=== PATIENT | male | born 1970 | race Hispanic/Latino ===

== ENCOUNTER 2018-08-08 16:20 | Inpatient (IN) | payer SELFPAY ==
--- NOTE | 2018-08-08 17:20 | ULT ---
Left lower extremity venous Doppler ultrasound: 08/08/2018 COMPARISON: None HISTORY: Pain, swelling, edema, assess for DVT TECHNIQUE: Multiplanar grayscale sonographic imaging of the left lower extremity venous structures ob tained with color flow and spectral analysis FINDINGS: Left common femoral vein, greater saphenous vein, profunda femoral vein, femoral vein, popl iteal vein, and posterior tibial vein are patent. Normal blood flow augmentation and compression of the deep venous system. No evidence for DVT on the left IMPRESSION: No evidence for left lower extremity DVT.
[2018-08-08] MEDS ORDERED: Dextrose 50% Abboject 50 ML SYRINGE SLOW IVP PRN (18:17)
[2018-08-08] MEDS ORDERED: Dextrose 5% in Water 1,000 ML IV PRN (18:17)
[2018-08-08] MEDS ORDERED: Ondansetron PF 4 MG/2 ML Vial IVP PRN (18:17)
[2018-08-08] MEDS ORDERED: Potassium Chloride 20 MEQ TAB PO SCH (18:30)
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
[2018-08-08 19:27] VITALS: BMI 34.2
--- NOTE | 2018-08-08 19:37 | RAD ---
Left ankle 3 views: 08/08/2018 COMPARISON: None HISTORY: Lateral pain FINDINGS: Mild soft tissue swelling overlies the lateral malleolus. The talar dome and ankle mortise are intact. No displaced fracture or dislocation is seen. There is enthesophyte formation at the origin of the plantar aponeurosis insertion of the Achilles tendon. There is atherosclerotic calcific ation anterior and posterior to the ankle and distal left tibia. IMPRESSION: Soft tissue swelling. No acute fracture or dislocation.
--- NOTE | 2018-08-08 20:53 | PDOC.EVN ---
Event Note - Event Note Event Note: pt's bp on the floor is 160's systolic - will reduce amlodipine to 5 mg to avoid a precipitous drop in bp. Re-assess in AM, and consider BID dosing if significantly elevated.
[2018-08-08] MEDS ORDERED: Amlodipine 5 MG TAB PO SCH (21:00)
[2018-08-08] MEDS ORDERED: Vancomycin HCl 1 GM in Premix Bag 1 BAG IVPB SCH (21:00)
[2018-08-08] MEDS ORDERED: Amlodipine 10 MG TAB PO SCH (21:00)
[2018-08-08] MEDS ORDERED: Insulin Glargine 25 UNITS in Pre-Filled Syringe 1 EACH SC SCH (21:00)
[2018-08-08] MEDS: Cefepime 2 GM in Sodium Chloride 0.9% 100 ML IVPB SCH (21:10)
[2018-08-08] MEDS: Heparin 5,000 UNITS/ML VIAL SC SCH (21:10)
[2018-08-08] MEDS: Sodium Chloride 0.9% 1,000 ML IV SCH (21:23)
[2018-08-08] MEDS: HumaLOG 300 UNITS/3 ML VIAL SC PRN (21:27)
[2018-08-09] MEDS: Vancomycin HCl 1.75 GM in Sodium Chloride 0.9% 500 ML IVPB SCH ×2 (00:21→12:17)
[2018-08-09] MEDS: Acetaminophen 325 MG TAB PO PRN ×3 (00:30→17:39)
[2018-08-09] MEDS: hydrALAZINE 20 MG/ML VIAL SLOW IVP PRN ×2 (00:30→05:03)
[2018-08-09] MEDS: HumaLOG 300 UNITS/3 ML VIAL SC PRN ×4 (05:05→21:19)
[2018-08-09 06:32] LABS: #Lymphocytes 1.4 thou/uL (1.20-3.40); #Monocytes 0.7 thou/uL (0.11-0.59); #Neutrophils 7.4 thou/uL (1.40-6.50); %Basophils 0.1 % (0.0-1.0); %Eosinophils 0.3 % (0.0-10.0); %Monocytes 7.6 % (0.0-10.0); Mean Corpuscular HGB CONC 35.5 g/dL (32.0-36.0); Mean Corpuscular Hemoglobin 31.8 pg (27.0-31.0); Mean Corpuscular Volume 89.8 fL (78.0-98.0); Mean Platelet Volume 9.4 fL (7.4-10.4); Platelet Count 119 thou/uL (130-400); RBC Distribution Width 11.6 % (11.5-14.5); Red Blood Cell (RBC) Count 4.38 mill/uL (4.70-6.10); White Blood Cell (WBC) Count 9.5 thou/uL (4.8-10.8)
[2018-08-09 06:42] LABS: Anion Gap 11 mmol/L (10-20); BUN (Urea Nitrogen) 17 mg/dL (8.9-20.6); Calc. Creatinine Clearance 103 mL/min (70-130); Carbon Dioxide 26 mmol/L (22-29); Chloride 101 mmol/L (98-107); Estimated GFR-MDRD 51; Glucose 261 mg/dL (70-105); Potassium 3.1 mmol/L (3.5-5.1); Sodium 135 mmol/L (136-145)
[2018-08-09] MEDS ORDERED: Potassium Chloride 20 MEQ TAB PO SCH ×2 (07:30→18:30)
[2018-08-09] MEDS: Cefepime 2 GM in Sodium Chloride 0.9% 100 ML IVPB SCH ×2 (08:24→21:19)
[2018-08-09] MEDS: Amlodipine 5 MG TAB PO SCH ×2 (08:24→21:18)
[2018-08-09] MEDS: Heparin 5,000 UNITS/ML VIAL SC SCH ×2 (08:25→21:18)
[2018-08-09] MEDS ORDERED: Lisinopril 10 MG TAB PO SCH (09:00)
[2018-08-09] MEDS ORDERED: Magnesium Sulfate 2 GM in Sodium Chloride 0.9% 100 ML IVPB SCH (09:00)
[2018-08-09] MEDS ORDERED: Magnesium 2 GM/50 ML 2 GM in Premix Bag 1 BAG IVPB SCH ×2 (10:00→18:30)
--- NOTE | 2018-08-09 16:14 | PDOC.PN ---
- Subjective Encounter Start Date: 08/09/18 (f/u cellulitis) Encounter Start Time: 09:45 Subjective: Pt reports pain is improved in left leg. Has nausea now, and some n /v -: along with fever earlier this morning. - Objective Resuscitation Status - Order Detail: 08/08/18 18:17 Resuscitation Status Routine Resuscitation Status: FULL: Full Resuscitation Vital Signs & Weight: Vital Signs (12 hours) Temp Pulse Resp BP BP Pulse Ox 08/09/18 12:21 100.0 F H 08/09/18 11:47 102.8 F H 95 20 143/73 H 93 L 08/09/18 08:29 98.5 F 08/09/18 08:24 91 161/75 H 92 L 08/09/18 07:36 101.0 F H 92 20 161/75 H 92 L 08/09/18 07:22 133/62 08/09/18 04:25 99.7 F H 83 18 193/89 H 94 L Weight Weight 259 lb 15.858 oz I&O: 08/08/18 08/09/18 08/10/18 06:59 06:59 06:59 Intake Total 1240 Balance 1240 Result Diagrams: 08/09/18 06:05 08/09/18 06:05 Additional Labs: Accuchecks 08/09/18 08/09/18 08/08/18 11:22 04:59 21:08 POC Glucose 262 H 257 H 464 H Phys Exam - Physical Examination Constitutional: NAD Respiratory: no wheezing, no rales, no rhonchi Cardiovascular: RRR, no significant murmur Gastrointestinal: soft, non-tender, no distention, positive bowel sounds LLE mild erythema/edema and ttp along lateral malleolus and distal 1/3 tibia with hyperpigmentaion and central crusting Neurological: non-focal Psychiatric: normal affect Dx/Plan (1) Cellulitis Code(s): L03.90 - CELLULITIS, UNSPECIFIED Status: Acute Qualifiers: Site of cellulitis: extremity Site of cellulitis of extremity: lower extremity Laterality: left Qualified Code(s): L03.116 - Cellulitis of left lower limb (2) CKD (chronic kidney disease) stage 2, GFR 60-89 ml/min Code(s): N18.2 - CHRONIC KIDNEY DISEASE, STAGE 2 (MILD) Status: Chronic (3) DM type 2 (diabetes mellitus, type 2) Status: Chronic 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 Diabetes mellitus complication status: with kidney complications Diabetes mellitus complication detail: with chronic kidney disease (4) HTN (hypertension) Code(s): I10 - ESSENTIAL (PRIMARY) HYPERTENSION Status: Chronic Qualifiers: Hypertension type: essential hypertension Qualified Code(s): I10 - Essential (primary) hypertension (5) Obesity Code(s): E66.9 - OBESITY, UNSPECIFIED Status: Acute Qualifiers: Obesity type: due to excess calories Obesity classification: adult class 1 (BMI 30 - 34.9) - Plan * Continue cefepime and Vanc for cellulitis - pt at high risk for complications secondary to uncontrolled DM and HTN * If continuing to fever tomorrow, consider imaging to eval for osteo - no signs of this on XR * * Amlodipine initiated yesterday, lisinopril today for management of blood pressures. These will need to be titrated and renal function monitored * * fasting blood sugar 260's - increase lantus to 30 units HS * * Blood cultures drawn in [place] - are here in the main lab and are negative so far. These do not show up in our system - I talked with the lab to confirm. * * proteinuria with CKD - monitor for stability, JAN-I and control blood sugars and pressures * * replace magnesium and potassium - recheck in afternoon * manage nausea and fevers * d/c IVF when nausea managed and taking adequate PO * * dvt prophy - heparin * * gi prophy - not indicated * * code status full * * pt remains at high risk in current condition
[2018-08-09] MEDS: Sodium Chloride 0.9% 1,000 ML IV SCH (16:24)
[2018-08-09 17:40] LABS: Magnesium 1.3 mg/dL (1.6-2.6); Potassium 3.2 mmol/L (3.5-5.1)
--- NOTE | 2018-08-09 18:25 | PDOC.EVN ---
Event Note - Event Note Event Note: Mag is now 1.3 after 2 grams IV, and potassium is 3.2 - continue repletion and recheck in AM 20:05 - reviewed fever curve and pt has been febrile all day, new compared to yesterday. ID consult placed, and pt discussed with Dr. Hadley - will add clindamycin 600 mg IV Q6h tonight, and continue the current cefepime and Vancomycin. Discussed with pt's nurse and pharmacy to start the first dose now rather than the automatic timing of midnight.
[2018-08-09] MEDS: Insulin Glargine 30 UNITS in Pre-Filled Syringe 1 EACH SC SCH (21:19)
[2018-08-09] MEDS: Clindamycin/D5W 600 MG in Premix Bag 1 BAG IVPB SCH (21:20)
[2018-08-10] MEDS: Vancomycin HCl 1.75 GM in Sodium Chloride 0.9% 500 ML IVPB SCH (01:24)
[2018-08-10] MEDS: Clindamycin/D5W 600 MG in Premix Bag 1 BAG IVPB SCH ×2 (03:42→08:05)
[2018-08-10] MEDS ORDERED: Vancomycin HCl 1.5 GM in Sodium Chloride 0.9% 250 ML 300 ML IVPB SCH (04:00)
[2018-08-10] MEDS: HumaLOG 300 UNITS/3 ML VIAL SC PRN ×3 (05:52→20:45)
--- NOTE | 2018-08-10 05:53 | PDOC.EVN ---
Event Note - Event Note Event Note: Reviewing pt's vital signs overnight - last bp a few hours ago was 90's systolic. Called RN who repeated it now and it is 110's systolic, pt afebrile. Will place on hold both the norvasc and lisinopril and resume IVF which were d /c last evening. Monitor closely for decompensation/sepsis - as pt was significantly hypertensive on admission, and febrile throughout the day yesterday. Requested RN share the information with the daytime nurse - and to call the doctor cotton weigher with any changes in status/blood pressure or concerns.
[2018-08-10] MEDS: Sodium Chloride 0.9% 1,000 ML IV SCH ×2 (05:55→08:14)
[2018-08-10 06:29] LABS: #Eosinphils 0.1 thou/uL (0.0-0.7); #Lymphocytes 1.3 thou/uL (1.20-3.40); #Monocytes 0.7 thou/uL (0.11-0.59); #Neutrophils 3.9 thou/uL (1.40-6.50); %Basophils 0.1 % (0.0-1.0); %Eosinophils 1.2 % (0.0-10.0); %Lymphocytes 21.3 % (21.0-51.0); %Monocytes 12.1 % (0.0-10.0); %Neutrophils 65.3 % (42.0-75.0); Hemoglobin 11.3 g/dL (14.0-18.0); Mean Corpuscular HGB CONC 34.6 g/dL (32.0-36.0); Mean Corpuscular Hemoglobin 31.5 pg (27.0-31.0); Mean Corpuscular Volume 90.9 fL (78.0-98.0); Mean Platelet Volume 9.5 fL (7.4-10.4); Platelet Count 109 thou/uL (130-400); RBC Distribution Width 11.3 % (11.5-14.5); Red Blood Cell (RBC) Count 3.58 mill/uL (4.70-6.10)
[2018-08-10 06:48] LABS: Anion Gap 10 mmol/L (10-20); BUN (Urea Nitrogen) 19 mg/dL (8.9-20.6); Calc. Creatinine Clearance 103 mL/min (70-130); Calcium 7.9 mg/dL (7.8-10.44); Carbon Dioxide 24 mmol/L (22-29); Chloride 103 mmol/L (98-107); Estimated GFR-MDRD 51; Glucose 180 mg/dL (70-105); Magnesium 1.8 mg/dL (1.6-2.6); Potassium 3.1 mmol/L (3.5-5.1); Sodium 134 mmol/L (136-145)
[2018-08-10] MEDS: Heparin 5,000 UNITS/ML VIAL SC SCH (07:13)
--- NOTE | 2018-08-10 07:18 | PDOC.PN ---
- Subjective Encounter Start Date: 08/10/18 Encounter Start Time: 14:30 Subjective: Patient reports improvement in leg swelling. Never really noticed much -: redness. No fever today. Vomited water yest morning, no problems since. - Objective Resuscitation Status - Order Detail: 08/08/18 18:17 Resuscitation Status Routine Resuscitation Status: FULL: Full Resuscitation MAR Reviewed: Yes Vital Signs & Weight: Vital Signs (12 hours) Temp Pulse Resp BP Pulse Ox 08/10/18 05:39 117/66 08/10/18 03:40 98.5 F 69 18 90/47 L 93 L 08/09/18 23:45 98.6 F 71 16 146/70 H 94 L 08/09/18 19:56 99.9 F H 77 18 132/71 95 08/09/18 19:43 95 Weight Weight 259 lb 15.858 oz I&O: 08/09/18 08/10/18 08/11/18 06:59 06:59 06:59 Intake Total 1240 2725 Balance 1240 2725 Result Diagrams: 08/10/18 05:43 08/10/18 05:43 Additional Labs: Accuchecks 08/10/18 08/09/18 08/09/18 05:22 20:01 16:37 POC Glucose 217 H 250 H 260 H 08/09/18 11:22 POC Glucose 262 H Phys Exam - Physical Examination Constitutional: NAD HEENT: moist MMs Respiratory: no wheezing, no rales, no rhonchi Cardiovascular: RRR, no significant murmur Gastrointestinal: soft, positive bowel sounds edema L>R LE, some excoriations, min redness around one of them Psychiatric: normal affect, A&O x 3 Dx/Plan (1) Cellulitis Code(s): L03.90 - CELLULITIS, UNSPECIFIED Status: Acute Qualifiers: Site of cellulitis: extremity Site of cellulitis of extremity: lower extremity Laterality: left Qualified Code(s): L03.116 - Cellulitis of left lower limb Comment: on cefepime and Vanc since 08/08/2018--> abx deescalated to Rocephin today by Dr. 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 Diabetes mellitus complication status: with kidney complications Diabetes mellitus complication detail: with chronic kidney disease (5) HTN (hypertension) Code(s): I10 - ESSENTIAL (PRIMARY) HYPERTENSION Status: Chronic Qualifiers: Hypertension type: essential hypertension Qualified Code(s): I10 - Essential (primary) hypertension (6) Thrombocytopenia Code(s): D69.6 - THROMBOCYTOPENIA, UNSPECIFIED Status: Acute Comment: slight drop since admit, will d/c heparin and start subcutaneous Lovenox, may need to d/c that as well if drops any further - Plan cont current plan of care, continue antibiotics, DVT proph w/heparin Hold after ABX change till tomorrow per Dr. Hadley, if still doing well can -: d/c home at that time. * . - Discharge Day Encounter end time: 14:40
[2018-08-10] MEDS ORDERED: Potassium Chloride 20 MEQ TAB PO SCH (07:30)
[2018-08-10] MEDS: Cefepime 2 GM in Sodium Chloride 0.9% 100 ML IVPB SCH (08:04)
[2018-08-10] MEDS: HYDROcodone/Acetaminophen 5/325 mg Tablet PO PRN ×2 (08:07→18:57)
[2018-08-10] MEDS: Enoxaparin Sodium 30 MG/0.3 ML SYRINGE SC SCH (08:08)
[2018-08-10] MEDS ORDERED: cefTRIAXone\\ROCEPHIN 1 GM VIAL IM SCH (13:45)
[2018-08-10] MEDS: Insulin Glargine 30 UNITS in Pre-Filled Syringe 1 EACH SC SCH (20:44)
--- NOTE | 2018-08-10 20:50 | CON ---
DATE OF CONSULTATION: 08/10/2018 REASON FOR CONSULTATION: Cellulitis. HISTORY OF PRESENT ILLNESS: A 48-year-old gentleman, history of type 2 diabetes and hypertension with new onset of left lower extremity pain, which developed a night before admission. Never had similar findings before. He did have a fall where he tripped, but he did not notice any wounds in his extremities. Initial findings; BP 160/77, pulse 80, respirations 18, temperature 100.3, and O2 saturation 97%. Alert, responsive. Overall exam remarkable for findings consistent with cellulitis in the left leg, started in the mid tibia all the way to the hindfoot region. No open wound noted. LABORATORY DATA: White cell count 8.8, 77% neutrophils. Creatinine 1.48, sodium 134. PAST MEDICAL HISTORY: Includes hypertension, type 2 diabetes, and left foot cellulitis, which was treated in 2014. SOCIAL HISTORY: Drinks weekly alcoholic beverages, but not daily and he does not smoke. FAMILY HISTORY: Unremarkable. MEDICATIONS: 1. Metformin. 2. Insulin. CURRENT MEDICATIONS: 1. [place]. 2. Norvasc. 3. Cefepime. 4. Clindamycin. 5. Enoxaparin. 6. Glucagon. 7. Hydralazine. 8. Lisinopril. 9. Vancomycin. PHYSICAL EXAMINATION: VITAL SIGNS: T-max 101 to 102.3, he has been afebrile since. BP 190/47, pulse 77. SKIN: Shows the areas of hyperpigmentation in lower extremities consistent with stasis dermatitis. No blistering. Mild medial aspect distal ankle skin erythema, very mild. According to the patient, there has been quite a bit of improvement. I do not have any photos here to compare. HEENT: No lymphadenopathy. Ocular movements conjugate. Numerous missing teeth with the remaining ones in quite a bit of decay. Moist mucosa. No lesions. NECK: Supple. No jugular vein distention. Carotid bruits. No thyromegaly. LUNGS: Symmetric. Clear breath sounds. HEART: S1 and S2, regular rate. No S3 or S4. ABDOMEN: Soft, not distended or tender. No bladder distention. MUSCULOSKELETAL: No joint inflammatory activity. Pulses are 1+ in dorsalis pedis. No open wounds. Range of motion of the ankle was normal without any pain. LABORATORY DATA: White cell count of 9.5 and 6.0, hemoglobin 14 and 11, platelets 119 and 109. Sodium 134, creatinine 1.48, and glucose 238. Toxicology, vancomycin trough 20. Microbiology with negative blood cultures thus far. Urine culture, no growth for 24 hours. Ankle x-ray from 08/08 with soft tissue swelling, but no other findings of significance. Vascular ultrasound with no evidence of deep vein thrombosis. ASSESSMENT: Type 2 diabetes, hypertension, previous episode of cellulitis left foot, now with what appears to be cellulitis of the left leg and hindfoot region without any wound. No evidence of inflammatory arthropathy. 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 We will switch him to Rocephin again and discontinue the remaining antimicrobials. Eventual transition to oral Keflex for discharge planning. He would merit Pen-Vee K suppressive therapy 250 mg twice daily for at least 6 months and compression stockings. Alternate diagnosis would be gouty arthritis or infectious arthropathy of the left ankle, but that appears to be much less likely. Job ID: [id number]
[2018-08-11] MEDS: Sodium Chloride 0.9% 1,000 ML IV SCH (05:12)
[2018-08-11] MEDS: HumaLOG 300 UNITS/3 ML VIAL SC PRN (05:19)
[2018-08-11 06:42] LABS: Hemoglobin 11.1 g/dL (14.0-18.0); Mean Corpuscular HGB CONC 35.2 g/dL (32.0-36.0); Mean Corpuscular Hemoglobin 32.3 pg (27.0-31.0); Mean Corpuscular Volume 91.7 fL (78.0-98.0); Mean Platelet Volume 9.5 fL (7.4-10.4); Platelet Count 113 thou/uL (130-400); RBC Distribution Width 11.3 % (11.5-14.5); Red Blood Cell (RBC) Count 3.42 mill/uL (4.70-6.10); White Blood Cell (WBC) Count 4.1 thou/uL (4.8-10.8)
[2018-08-11 06:59] LABS: Anion Gap 10 mmol/L (10-20); BUN (Urea Nitrogen) 22 mg/dL (8.9-20.6); Calc. Creatinine Clearance 100 mL/min (70-130); Calcium 8.2 mg/dL (7.8-10.44); Carbon Dioxide 23 mmol/L (22-29); Chloride 105 mmol/L (98-107); Estimated GFR-MDRD 49; Glucose 191 mg/dL (70-105); Potassium 4.3 mmol/L (3.5-5.1); Sodium 134 mmol/L (136-145)
[2018-08-11 07:23] LABS: Band 4 % (5-11); Eosinophils 3 % (0-10); Lymphocytes 38 % (21-51); MDiff Complete? YES; Monocytes 12 % (0-10); Neutrophil 41 % (42-75); Platelet Morphology Comment Appears Decreased; Polychromasia SLIGHT = 2-3 cells (100X) (0-2/hpf); Reactive Lymphocytes 2 % (0-10)
[2018-08-11 08:19] VITALS: BP 134/79; TEMP 98.8
--- NOTE | 2018-08-11 08:27 | PDOC.PN ---
- Subjective Encounter Start Date: 08/11/18 Encounter Start Time: 09:20 Subjective: Patient feeling well. Leg pain improved. No fever. No other symptoms. - Objective Resuscitation Status - Order Detail: 08/08/18 18:17 Resuscitation Status Routine Resuscitation Status: FULL: Full Resuscitation MAR Reviewed: Yes Vital Signs & Weight: Vital Signs (12 hours) Temp Pulse Resp BP BP Pulse Ox 08/11/18 08:00 98.8 F 68 20 134/79 97 08/11/18 04:00 98.5 F 56 L 20 140/77 96 08/11/18 00:00 98.2 F 57 L 20 113/64 94 L 08/10/18 20:30 98.7 F 75 20 132/71 94 L Weight Weight 259 lb 15.858 oz I&O: 08/10/18 08/11/18 08/12/18 06:59 06:59 06:59 Intake Total 2725 480 Balance 2725 480 Result Diagrams: 08/11/18 05:46 08/11/18 05:46 Additional Labs: Accuchecks 08/11/18 08/10/18 08/10/18 04:14 20:22 17:09 POC Glucose 208 H 285 H 240 H 08/10/18 11:40 POC Glucose 238 H Phys Exam - Physical Examination Constitutional: NAD HEENT: moist MMs Respiratory: no wheezing, no rales, no rhonchi Cardiovascular: RRR, no significant murmur Gastrointestinal: soft, positive bowel sounds Musculoskeletal: edema present Neurological: non-focal, moves all 4 limbs Psychiatric: normal affect, A&O x 3 Deviation from normal: mild erythema left leg, almost gone Dx/Plan (1) Cellulitis Code(s): L03.90 - CELLULITIS, UNSPECIFIED Status: Acute Qualifiers: Site of cellulitis: extremity Site of cellulitis of extremity: lower extremity Laterality: left Qualified Code(s): L03.116 - Cellulitis of left lower limb Comment: on cefepime and Vanc since 08/08/2018--> abx deescalated to Rocephin by Dr. Hadley, needs O/P Keflex and then 6 months of suppressive PenVK with compression hose (2) CKD (chronic kidney disease) stage 2, GFR 60-89 ml/min Code(s): N18.2 - CHRONIC KIDNEY DISEASE, STAGE 2 (MILD) Status: Chronic Comment: creatinine stable (3) Obesity Code(s): E66.9 - OBESITY, UNSPECIFIED Status: Acute Qualifiers: Obesity type: due to excess calories Obesity classification: adult class 1 (BMI 30 - 34.9) (4) DM type 2 (diabetes mellitus, type 2) Status: Chronic Qualifiers: Diabetes mellitus long-term insulin use: with long-term use Diabetes mellitus complication status: with kidney complications Diabetes mellitus complication detail: with chronic kidney disease (5) HTN (hypertension) Code(s): I10 - ESSENTIAL (PRIMARY) HYPERTENSION Status: Chronic Qualifiers: Hypertension type: essential hypertension Qualified Code(s): I10 - Essential (primary) hypertension (6) Thrombocytopenia Code(s): D69.6 - THROMBOCYTOPENIA, UNSPECIFIED Status: Acute Comment: slight drop since admit, will d/c heparin and start subcutaneous Lovenox, may need to d/c that as well if drops any further - Plan cont current plan of care, continue antibiotics, DVT proph w/lovenox ok to d/c home today with Keflex, f/u with [facility] outpatient for 6 months -: suppressive therapy * . - Discharge Day Encounter end time: 09:35
[2018-08-11] MEDS: HYDROcodone/Acetaminophen 5/325 mg Tablet PO PRN (08:44)
[2018-08-11] MEDS: Enoxaparin Sodium 30 MG/0.3 ML SYRINGE SC SCH (08:47)
--- NOTE | 2018-08-12 04:08 | DIS ---
DATE OF ADMISSION: 08/08/2018 DATE OF DISCHARGE: 08/11/2018 PRIMARY CARE PHYSICIAN: Dr. Kincaid. REASON FOR ADMISSION: Cellulitis. DIAGNOSES AT DISCHARGE: 1. Cellulitis, improved. 2. Chronic kidney disease, stage 2. 3. Obesity. 4. Diabetes mellitus, type 2. 5. Hypertension. 6. Thrombocytopenia, mild. PROCEDURES: 1. Left lower extremity Doppler ultrasound showing no evidence of DVT. 2. Left ankle x-ray showing soft tissue swelling. No acute fracture or dislocation. CONSULTATIONS: Infectious Disease, Dr. Hadley. SUMMARY OF HOSPITAL COURSE: This is a 48-year-old male with a history of hypertension and diabetes, who presented with an episode with complaint of leg pain. He has been on low-dose Lantus and metformin, though he was out of Lantus recently. His blood sugars found to be in the 500s, was seen in [place], was noted to have some cellulitis of the left lower extremity. He is given ceftriaxone, vancomycin, and transferred. He was also noted to have high blood pressures and transferred for admission. Patient had IV antibiotics here with improvement in his cellulitis. He did have initial elevations in his blood pressure. This resolved with adjusting his medications. Patient also had blood sugars remaining in the 1 to 200s on just insulin sliding scale. Dr. Hadley was consulted for Infectious Disease. He recommended treating with Rocephin and discontinue other antibiotics. With the patient's improvement, he then recommended switching to oral Keflex for 10 days and then doing suppressive pen VK for another six months to prevent recurrence. The patient is doing well on the day of discharge, being discharged home. DISCHARGE MANAGEMENT: Discharged home. FOLLOWUP: Follow up with Dr. Hadley in 2 to 3 weeks, Dr. Kincaid for his hypertension and diabetes. ACTIVITY: As tolerated. DIET: Diabetic, low-sodium diet. MEDICATIONS: Patient is to continue his: 1. Metformin 500 mg twice a day. 2. Continue lisinopril 10 mg daily. 3. Start amlodipine 5 mg twice a day, 60 tablets dispensed. 4. Keflex 500 mg 4 times a day, 40 capsules dispensed. 5. Resume Lantus 10 units subcu daily, one pen dispensed to pharmacy. 6. Penicillin VK 250 mg twice a day, 60 tablets dispensed with five refills to continue for a full 6 months after finishing his Keflex. Arranging the details of this discharge took 35 minutes. Job ID: [id number]
--- NOTE | 2018-08-13 05:00 | PQF ---
[facility] [employer] Reports Win[employer] Viewer MELIDA JIMENES RYAN ANDREW MD [id number] CLINICAL DOCUMENTATION CLARIFICATION FORM: POST DISCHARGE Addendum to original discharge summary date: ____ Late entry note date: __ DATE: 08/13/18 ATTN: Efraín Phillip Please exercise your independent, professional judgment in responding to the clarification form. Clinical indicators are provided on the bottom of this form for your review Can you please further specify the relationship of Cellulitis to DM? Please check appropriate box(s): [ X ] Cellulitis due to Diabetes [ ] Cellulitis not due to Diabetes [ ] Other diagnosis please specify [ ] Unable to determine For continuity of documentation, please document condition throughout progress notes and discharge summary. Thank You. CLINICAL INDICATORS - SIGNS / SYMPTOMS / LABS H and P pg.1 08/08- Also noted earlier in the week an open sore on his left leg H and P pg.3 08/08- Cellulitis in a patient with uncontrolled diabetes and hypertension Hospitalist PN 08/[address] Mark-Patient at risk for complications secondary to uncontrolled DM and HTN Hospitalist PN 08/[address] Mark LLE mild erythema/edema and ttp along lateral malleolus and distal 1/3 tibia with hyperpigmentation and central crusting. Consult pg.2 08/10 Dr. 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 Hadley- Assessment: Type 2 diabetes, hypertension, previous episode of cellulitis left foot, now with what appears to be cellulitis of the left leg and hind foot region without any wound. No evidence of inflammatory arthropathy. DS pg.1 08/11- his blood sugar found to be 500s RISKS: Hypertension-H and P pg.1 08/08 Diabetes Mellitus type 2-H and P pg.1 5/4 Obesity-H and P pg.1 5/4 CKD-H and P pg.2 5 TREATMENT: IV Fluids- MAR Doppler ultrasound- DS pg.1 Left ankle X-ray- DS pg.1 HumaLog SC- MAR Glucagon 1mg IM PRN- MAR Vancomycin 1.75mg IV- MAR (This form is maintained as a part of the permanent medical record) 2014 [employer]. All Rights Reserved Tico [email or web address] [not provided] [email or web address]
== END 2018-08-11 11:23 | disposition home or self-care (01) | DRG 638 ==
LOC: ERS 16:20 → T4-A 17:09
PROVIDERS: ADMIT Family Medicine; ATTEND Family Medicine
DX: E11.628 Type 2 diabetes mellitus with other skin complications (principal); L03.116 Cellulitis of left lower limb; N18.2 Chronic kidney disease, stage 2 (mild); E66.9 Obesity, unspecified; E11.22 Type 2 diabetes mellitus with diabetic chronic kidney disease; I12.9 Hypertensive chronic kidney disease with stage 1 through stage 4 chronic kidney disease, or unspecified chronic kidney disease; D69.6 Thrombocytopenia, unspecified; E11.65 Type 2 diabetes mellitus with hyperglycemia; E87.6 Hypokalemia; E88.09 Other disorders of plasma-protein metabolism, not elsewhere classified; B95.4 Other streptococcus as the cause of diseases classified elsewhere; Z79.899 Other long term (current) drug therapy; Z68.34 Body mass index [BMI] 34.0-34.9, adult; Z79.4 Long term (current) use of insulin
CPT/HCPCS: 36415; 36416; 80048; 80202; 83735; 85025; J0360; J0692; J0696; J1644; J1650; J1825; J2405; J3370; J3475; J3490; J7050

== ENCOUNTER 2021-08-28 15:57 | Outpatient (CLI) | payer MEDICARE, MEDICAID ==
[2021-08-29 00:20] LABS: SARS-CoV-2 PCR by NAA Not Detected (NotDetected)
== END 2021-08-28 15:58 | disposition home or self-care (01) ==
LOC: LABBT 15:57
PROVIDERS: ATTEND Ophthalmology Retina Specialist
DX: H33.41 Traction detachment of retina, right eye (principal); Z20.822 Contact with and (suspected) exposure to COVID-19
CPT/HCPCS: U0003; U0005

== ENCOUNTER 2021-08-30 06:02 | Day surgery (SDC) | payer MEDICARE, MEDICAID ==
[2021-08-29 12:30] VITALS: BMI 32.5
[2021-08-30] MEDS ORDERED: Phenylephrine 2.5% Ophth Soln 5 ML BOT ONE (06:10)
[2021-08-30] MEDS ORDERED: Cyclopentolate 1% Opth Drop 2 ML BOT ONE (06:10)
[2021-08-30] MEDS ORDERED: Fluorouracil 100 MG, EPINEPHrine 0.3 MG in Ophthalmic Irrigation Solution 500 ML IRR SCH (06:15)
[2021-08-30] MEDS ORDERED: fentaNYL Citrate/PF 100 MCG/2 ML SYRINGE ONE (06:24)
[2021-08-30] MEDS ORDERED: Midazolam HCl 2 mg/2 ml Vial ONE (06:24)
[2021-08-30] MEDS ORDERED: PROPOFOL 20 ML ONE (06:24)
[2021-08-30] MEDS ORDERED: Lidocaine 1% PF 5 ML VIAL ONE (08:38)
[2021-08-30] MEDS ORDERED: Triamcinolone 40 MG/ML VIAL ONE (08:38)
[2021-08-30] MEDS ORDERED: Lidocaine 4% PF 5 ML AMP ONE (08:38)
[2021-08-30] MEDS ORDERED: Bupivacaine 0.75% 10 ML VIAL ONE (08:38)
[2021-08-30] MEDS ORDERED: CEFAZOLIN 1 GM VIAL ONE (08:38)
[2021-08-30] MEDS ORDERED: Maxitrol 0.1% Opth Oint 3.5 GM TUBE ONE (08:38)
== END 2021-08-30 10:30 | disposition home or self-care (01) ==
LOC: SDC 06:02
PROVIDERS: ATTEND Ophthalmology Retina Specialist
PROC: 08T43ZZ Resection of Right Vitreous, Percutaneous Approach (ICD-10-PCS; principal; 2021-08-30)
DX: H33.41 Traction detachment of retina, right eye (principal); Z79.4 Long term (current) use of insulin; Z79.899 Other long term (current) drug therapy
CPT/HCPCS: 67113; 82962; C1814; 36416; J0171; J0690; J2250; J2704; J3301; J3490; J9190

== ENCOUNTER 2022-07-18 10:15 | Day surgery (SDC) | payer MEDICARE, MEDICAID ==
[2022-07-16 10:00] VITALS: BMI 31.4
[~2022-07-18 10:15] MED LIST: Fluorouracil 100 MG, Enoxaparin 25 MG, EPINEPHrine 0.3 MG in Ophthalmic Irrigation Solu... IRR SCH; Midazolam HCl 2 mg/2 ml Vial ONE; PROPOFOL 20 ML ONE; fentaNYL 50 mcg/mL 1 mL Vial ONE
[2022-07-18] MEDS ORDERED: Phenylephrine 2.5% Ophth Soln 5 ML BOT ONE (11:59)
[2022-07-18] MEDS ORDERED: Cyclopentolate 1% Opth Drop 2 ML BOT ONE (11:59)
[2022-07-18] MEDS ORDERED: Lidocaine 4% PF 5 ML AMP ONE (14:04)
[2022-07-18] MEDS ORDERED: CEFAZOLIN 1 GM VIAL ONE (14:04)
[2022-07-18] MEDS ORDERED: Lidocaine 1% PF 5 ML VIAL ONE (14:04)
[2022-07-18] MEDS ORDERED: Bupivacaine 0.75% 10 ML VIAL ONE (14:04)
[2022-07-18] MEDS ORDERED: Triamcinolone 40 MG/ML VIAL ONE (14:04)
[2022-07-18] MEDS ORDERED: Maxitrol 0.1% Opth Oint 3.5 GM TUBE ONE (14:04)
== END 2022-07-18 16:08 | disposition home or self-care (01) ==
LOC: EEVIPCON 10:15 → SDC 10:15
PROVIDERS: ATTEND Ophthalmology Retina Specialist
PROC: 08T53ZZ Resection of Left Vitreous, Percutaneous Approach (ICD-10-PCS; principal; 2022-07-18)
PROC: 08NF3ZZ Release Left Retina, Percutaneous Approach (ICD-10-PCS; 2022-07-18)
DX: H33.42 Traction detachment of retina, left eye (principal); H21.542 Posterior synechiae (iris), left eye; Z79.2 Long term (current) use of antibiotics; Z79.4 Long term (current) use of insulin; Z79.82 Long term (current) use of aspirin; Z79.52 Long term (current) use of systemic steroids; Z79.621 Long term (current) use of calcineurin inhibitor; Z79.899 Other long term (current) drug therapy
CPT/HCPCS: 67113; 82962; C1814; J3010; 36416; J0171; J0690; J1650; J2250; J2704; J3301; J3490; J9190